=== PATIENT | male | born 1990 | race American Indian/Alaskan Native ===

== ENCOUNTER 2019-05-07 15:27 | Emergency (ER) | payer SELFPAY ==
[2019-05-07 16:32] VITALS: BP 149/54
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
== END 2019-05-07 19:00 | disposition left against medical advice (07) ==
LOC: ED 15:27
DX: R10.9 Unspecified abdominal pain (principal); Z53.21 Procedure and treatment not carried out due to patient leaving prior to being seen by health care provider